=== PATIENT | male | born 1960 | race Caucasian/White ===

== ENCOUNTER 2025-08-24 12:02 | Outpatient (CLI) | payer MEDICARE ==
[~2025-08-24 12:02] MED LIST: iohexol 300mg/ml 100ml inj. ONE
--- NOTE | 2025-08-24 15:00 | RADIOLOGY REPORT ---
Procedure: CT CT CHEST W/ IV CONTRAST 08/24/2025 12:46 PM History: HEMOPTYSIS Comparison: None Technique: After the uneventful administration of contrast intravenously, CT imaging was performed through the chest. Coronal and sagittal reformations were performed by the technologist. Radiation Dose : CT Dose: CTDI volume is 15.3 mGy. Dose-length product is 644 mGy*cm Findings: Lower neck: Normal thyroid. Lungs: No focal consolidation. 0.8 cm nodule in the left lower lobe image 83 0.5 cm ground-glass nodule in the left upper lobe image 42 0.6 cm ground-glass nodule in the left lower lobe image 69 Calcified granuloma in the right upper lobe measures 0.6 cm, image 37 Heart/Vascular Structures: Normal heart size. No pericardial effusion. Lymph Nodes: No adenopathy Pleura: No pleural effusion or significant pneumothorax. Musculoskeletal: No acute osseous abnormality. Diffuse osteopenia. Multilevel degenerative changes of the spine. Soft tissues: Normal. Upper abdomen: Hepatic steatosis. Mild diffuse thickening of the esophagus. IMPRESSION: No acute cardiopulmonary disease. Multiple pulmonary nodules measuring up to 0.8 cm. Follow-up CT in 6-12 months is recommended. Hepatic steatosis. Mild diffuse thickening of the esophagus ; nonspecific. This may be within normal limits. Clinical correlation advised for possible mild esophagitis.
== END 2025-08-24 23:59 | disposition home or self-care (01) ==
LOC: RAD 12:02
PROVIDERS: ATTEND Nurse Practitioner Adult Health
DX: R91.8 Other nonspecific abnormal finding of lung field (principal); K76.0 Fatty (change of) liver, not elsewhere classified; R04.2 Hemoptysis; J84.10 Pulmonary fibrosis, unspecified; M85.88 Other specified disorders of bone density and structure, other site; M47.814 Spondylosis without myelopathy or radiculopathy, thoracic region
CPT/HCPCS: 71260; Q9967